=== PATIENT | female | born 1965 | race Caucasian/White ===

== ENCOUNTER 2023-01-29 10:46 | Observation (INO) ==
[2023-01-29] MEDS ORDERED: ONDANSETRON INJ 2 MG/ML 2 ML VIAL IV STA (11:10)
[2023-01-29] MEDS ORDERED: MECLIZINE HCL 25 MG TAB PO STA (11:15)
[2023-01-29] MEDS ORDERED: SODIUM CHLORIDE 0.9% 1000ML 1,000 ML IV SCH (11:15)
--- NOTE | 2023-01-29 11:20 | Emergency Department Note ---
History of Present Illness General Chief complaint: Vertigo Stated complaint: VERTIGO SX Time Seen by Provider: 01/29/23 10:59 Source: patient, EMS, RN notes reviewed and old records reviewed (EMS note reviewed) Mode of arrival: ambulatory Limitations: no limitations History of Present Illness This patient is a 57-year-old female who comes in after feeling dizzy at 8:00 in the morning. She said she was feeling well recently has had no recent illness fever or congestion. She says she sat up and felt like it was spinning. She had vertigo once before but it went away when she went back to sleep. She still has symptoms of feeling nauseated when she is resting but is worse if she moves her eyes or head. No trauma or injury no headache neck pain or stiffness no chest pain or shortness of breath or palpitations no focal numbness or weakness in the arms or legs or face. No difficulty speaking or swallowing. No change in vision. She did come in by EMS. Home Medications Medication Instructions Recorded Confirmed Type calcium carbonate 600 mg calcium 600 mg PO DAILY 05/03/19 01/29/23 History (1,500 mg) tablet (Calcium) ferrous sulfate 325 mg (65 mg 325 mg PO DAILY 05/03/19 01/29/23 History iron) tablet norgestimate-ethinyl estradiol 0 tab PO DAILY 05/03/19 01/29/23 History 0.18 mg/0.215mg/0.25mg-35 mcg(28)tablet (Tri-Sprintec (28)) ascorbic acid (vitamin C) 500 mg 500 mg PO DAILY 01/29/23 01/29/23 History tablet (Vitamin C) bupropion HCl 150 mg 24 hr tablet, 150 mg PO DAILY 01/29/23 01/29/23 History extended release cholecalciferol (vitamin D3) 25 0 mcg PO DAILY 01/29/23 01/29/23 History mcg (1,000 unit) tablet (Vitamin D3) levothyroxine 50 mcg tablet 50 mcg PO DAILY 01/29/23 01/29/23 History zinc 15 mg tablet 0 mg PO DAILY 01/29/23 01/29/23 History Allergies Allergy/AdvReac Type Severity Reaction Status Date / Time No Known Allergies Unverified 05/03/19 07:35 Past Med/Surg History Social History Smoking Status: Never smoker Preferred Language: Telugu Feels Safe at Home: Yes Immunizations: Past medical historythyroid disease. Denies history of strokes, diabetes, hypertension, cardiac disease she is on no blood thinners. She does have a history of palpitations in the past Allergiesno known drug allergies Social [place] . Does not smoke or drink or use drugs. Her primary doctor is Mark Gotti. 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 Review of Systems A total of 10 systems reviewed and were otherwise negative Physical Exam Vital Signs Vital Signs - 24 hr 01/29/23 10:48 01/29/23 11:12 01/29/23 11:03 Temperature 36.5 C Temperature Source Oral Pulse Rate 69 Pulse Rate from SpO2 Sensor Respiratory Rate 19 Respiratory Effort / Characteristics Non-Labored Spontaneous Respiratory Depth Normal Respiratory Pattern Regular Blood Pressure 166/101 H 157/113 H Blood Pressure Mean 122 136 Pulse Oximetry 100 Oxygen Delivery Method Room Air Room Air Sepsis Recent Fever Within 48 Hours No Sepsis New/Unexplained Change in Mental Status No Sepsis Action Taken by Nursing No Action Required 01/29/23 11:04 01/29/23 11:30 01/29/23 11:30 Temperature Temperature Source Pulse Rate 82 70 Pulse Rate from SpO2 Sensor 79 70 Respiratory Rate 15 14 Respiratory Effort / Characteristics Respiratory Depth Respiratory Pattern Blood Pressure 148/94 H Blood Pressure Mean 106 Pulse Oximetry 100 100 Oxygen Delivery Method Sepsis Recent Fever Within 48 Hours Sepsis New/Unexplained Change in Mental Status Sepsis Action Taken by Nursing 01/29/23 12:06 01/29/23 12:00 01/29/23 12:00 Temperature Temperature Source Pulse Rate 77 76 Pulse Rate from SpO2 Sensor 76 Respiratory Rate 10 L Respiratory Effort / Characteristics Respiratory Depth Respiratory Pattern Blood Pressure 149/95 H Blood Pressure Mean 124 Pulse Oximetry 100 Oxygen Delivery Method Sepsis Recent Fever Within 48 Hours Sepsis New/Unexplained Change in Mental Status Sepsis Action Taken by Nursing 01/29/23 12:38 01/29/23 12:38 01/29/23 13:00 Temperature Temperature Source Pulse Rate 77 Pulse Rate from SpO2 Sensor Respiratory Rate 11 L Respiratory Effort / Characteristics Respiratory Depth Respiratory Pattern Blood Pressure 139/87 138/88 Blood Pressure Mean 97 100 Pulse Oximetry Oxygen Delivery Method Sepsis Recent Fever Within 48 Hours Sepsis New/Unexplained Change in Mental Status Sepsis Action Taken by Nursing 01/29/23 13:00 01/29/23 14:55 01/29/23 14:56 Temperature Temperature Source Pulse Rate 78 83 Pulse Rate from SpO2 Sensor 78 82 84 Respiratory Rate 16 19 Respiratory Effort / Characteristics Respiratory Depth Respiratory Pattern Blood Pressure Blood Pressure Mean Pulse Oximetry 99 99 99 Oxygen Delivery Method Sepsis Recent Fever Within 48 Hours Sepsis New/Unexplained Change in Mental Status Sepsis Action Taken by Nursing 01/29/23 14:56 01/29/23 15:00 01/29/23 15:00 Temperature Temperature Source Pulse Rate 71 Pulse Rate from SpO2 Sensor 71 Respiratory Rate 14 Respiratory Effort / Characteristics Respiratory Depth Respiratory Pattern Blood Pressure 142/87 H 135/88 Blood Pressure Mean 112 101 Pulse Oximetry 94 Oxygen Delivery Method Sepsis Recent Fever Within 48 Hours Sepsis New/Unexplained Change in Mental Status Sepsis Action Taken by Nursing General: Well developed well nourished moderately ill-appearing middle-age female who has a towel over her face complaining she feels nauseated and dizzy but in no acute respiratory distress, breathing comfortably on room air. Normal speech HEENT: Normal cephalic atraumatic. Pupils are equal round and reactive to ligh t. Extraocular movements are intact. Oropharynx is pink with moist mucous membranes. No swelling of the mouth lips or tongue. Neck: Supple with a midline trachea. No meningeal signs or stiffness, no JVD or bruits. No Stridor. Chest: Clear to auscultation bilaterally. No wheezes or rhonchi. No increased work of breathing. Heart: Regular rate and rhythm without murmurs or gallops. Abdomen: Soft nontender, nondistended without rebound guarding or rigidity. Extremities: No cyanosis clubbing or edema. No calf tenderness or assymetry Spine/Back. Non tender to palpation. No CVA tenderness Skin: Good turgor without rashes. Neurologic exam: Cranial nerves two through 12 are intact. Motor and sensation are intact and symmetrical throughout. Course Administered Medications Discontinued Medications Gadobutrol (Gadobutrol 30ml Vial) 10.5 ml IV ONCE ONE Stop: 01/29/23 14:23 Last Admin: 01/29/23 14:23 Dose: 10.5 ml Documented By: SALLY Sodium Chloride (Nss 1000ml) 1,000 mls @ 999 mls/hr IV .Q1H1M ALYSIA Stop: 01/29/23 12:15 Last Infusion: 01/29/23 13:11 Dose: 0 mls/hr Documented By: Admin: 01/29/23 11:33 Dose: 999 mls/hr Documented By: ROMANA Ioversol (Optiray 320 500ml) 110 ml IV ONCE ONE Stop: 01/29/23 12:29 Last Admin: 01/29/23 12:28 Dose: 110 ml Documented By: BATSHEVA Lorazepam (Lorazepam 2 Mg/1 Ml Vial) 1 mg IV NOW STA Stop: 01/29/23 12:06 Last Admin: 01/29/23 12:11 Dose: 1 mg Documented By: KHADRA Meclizine HCl (Meclizine Hcl 25 Mg Tab) 25 mg PO NOW STA Stop: 01/29/23 11:16 Last Admin: 01/29/23 11:34 Dose: 25 mg Documented By: ROMANA Ondansetron HCl (Ondansetron Inj 2 Mg/Ml 2 Ml Vial) 4 mg IV NOW STA Stop: 01/29/23 11:11 Last Admin: 01/29/23 11:34 Dose: 4 mg Documented By: ROMANA Medical Decision Making Differential Diagnosis Vertigo, intracranial process, CVA, electrolyte or metabolic abnormality, arrhythmia, infection, anemia Medical Records Attestation: I reviewed the patient's medical records. Home Medications Current Medication List: was personally reviewed by me Laboratory Data Attestation: I reviewed the patient's lab results. 01/29/23 11:00 01/29/23 11:00 Lab Results 01/29/23 01/29/23 01/29/23 Range/Units 11:00 11:00 11:00 WBC 6.97 (4.8-10.8) K/ul RBC 4.43 (4.20-5.40) M/uL Hgb 13.0 (12.0-16.0) g/dl POC Hgb (12.0-16.0) g/dl Hct 37.4 (37.0-47.0) % POC Hct (37-47) % MCV 84.4 (80.0-100.0) fL MCH 29.3 (25.0-34.0) pg MCHC 34.8 (32.0-36.0) g/dL RDW Std Deviation 40.5 (36.4-46.3) fL RDW Coeff of Josselin 13.1 (11.5-14.5) % Plt Count 195 (130-400) K/uL MPV 10.6 (9.4-12.4) fL Immature Gran % (Auto) 0.4 % Neut % (Auto) 74.9 % Lymph % (Auto) 19.7 % [place] % (Auto) 4.0 % Eos % (Auto) 0.6 % Baso % (Auto) 0.4 % Neut # (Auto) 5.22 (1.40-6.50) K/uL Lymph # (Auto) 1.37 (1.2-3.4) K/uL [place] # (Auto) 0.28 (0.11-0.59) K/uL Eos # (Auto) 0.04 (0-0.50) K/uL Baso # (Auto) 0.03 (0-0.2) K/uL Immature Gran # (Auto) 0.03 (0.01-0.20) K/uL POC Sodium (135-144) mmol/L Sodium 136 (136-145) mmol/L POC Potassium (3.3-5.0) mmol/L Potassium 3.9 (3.5-5.1) mmol/L POC Chloride (101-112) mmol/L Chloride 105 (98-107) mmol/L Carbon Dioxide 24 (21-32) mmol/L POC Total CO2 (24-31) mmol/L Anion Gap 7 (3-11) POC Anion Gap (16-25) mmol/L POC BUN (7-18) mg/dl BUN 27 H (6-23) mg/dl Creatinine 0.79 (0.6-1.2) mg/dl POC Creatinine (0.6-1.3) mg/dl Est Cr Clr Drug Dosing 99.8 ml/min Est GFR ( Amer) 97.7 ml/min Est GFR (Non-Af Amer) 84.3 ml/min BUN/Creatinine Ratio 34.2 H (10-20) Glucose 139 H (70-99(Fasting)) mg/dl POC Glucose (other) (70-99) mg/dl Calcium 9.3 (8.6-10.3) mg/dl POC Ioniz Calcium Efraín (1.12-1.32) mmol/l Magnesium 1.7 (1.7-2.4) mg/dl Total Bilirubin 0.5 (0.2-1.0) mg/dl AST 17 (13-39) U/L ALT 20 (7-52) U/L Alkaline Phosphatase 80 (34-104) U/L Troponin I High Sens < 2.3 (0-14) pg/ml Total Protein 7.3 (6.0-8.3) gm/dl Albumin 4.2 (3.4-5.0) gm/dl Globulin 3.1 (2.5-4.0) gm/dl Albumin/Globulin Ratio 1.4 (0.9-2) Lipase 16 (11-82) U/L TSH 4.337 (0.300-4.500) uIu/ml SARS-CoV-2, RNA, NAAT (NEGATIVE) 01/29/23 01/29/23 Range/Units 11:32 11:40 WBC (4.8-10.8) K/ul RBC (4.20-5.40) M/uL Hgb (12.0-16.0) g/dl POC Hgb 11.9 L (12.0-16.0) g/dl Hct (37.0-47.0) % POC Hct 35 L (37-47) % MCV (80.0-100.0) fL MCH (25.0-34.0) pg MCHC (32.0-36.0) g/dL RDW Std Deviation (36.4-46.3) fL RDW Coeff of Josselin (11.5-14.5) % Plt Count (130-400) K/uL MPV (9.4-12.4) fL Immature Gran % (Auto) % Neut % (Auto) % Lymph % (Auto) % [place] % (Auto) % Eos % (Auto) % Baso % (Auto) % Neut # (Auto) (1.40-6.50) K/uL Lymph # (Auto) (1.2-3.4) K/uL [place] # (Auto) (0.11-0.59) K/uL Eos # (Auto) (0-0.50) K/uL Baso # (Auto) (0-0.2) K/uL Immature Gran # (Auto) (0.01-0.20) K/uL POC Sodium 141 (135-144) mmol/L Sodium (136-145) mmol/L POC Potassium 3.3 (3.3-5.0) mmol/L Potassium (3.5-5.1) mmol/L POC Chloride 108 (101-112) mmol/L Chloride (98-107) mmol/L Carbon Dioxide (21-32) mmol/L POC Total CO2 19 L (24-31) mmol/L Anion Gap (3-11) POC Anion Gap 19.0 (16-25) mmol/L POC BUN 21 H (7-18) mg/dl BUN (6-23) mg/dl Creatinine (0.6-1.2) mg/dl POC Creatinine 0.6 (0.6-1.3) mg/dl Est Cr Clr Drug Dosing ml/min Est GFR ( Amer) ml/min Est GFR (Non-Af Amer) ml/min BUN/Creatinine Ratio (10-20) Glucose (70-99(Fasting)) mg/dl POC Glucose (other) 120 H (70-99) mg/dl Calcium (8.6-10.3) mg/dl POC Ioniz Calcium Efraín 1.10 L (1.12-1.32) mmol/l Magnesium (1.7-2.4) mg/dl Total Bilirubin (0.2-1.0) mg/dl AST (13-39) U/L ALT (7-52) U/L Alkaline Phosphatase (34-104) U/L Troponin I High Sens (0-14) pg/ml Total Protein (6.0-8.3) gm/dl Albumin (3.4-5.0) gm/dl Globulin (2.5-4.0) gm/dl Albumin/Globulin Ratio (0.9-2) Lipase (11-82) U/L TSH (0.300-4.500) uIu/ml SARS-CoV-2, RNA, NAAT NEGATIVE (NEGATIVE) Imaging Data Attestation: I personally reviewed and interpreted this imaging study as follows: My Impression: CT head Radiologist's Impression: Head CT 01/29/23 11:[address] DOSE: HISTORY: vertigo TECHNIQUE: Multiaxial CT images of the head were performed without the use of intravenous contrast. Automated exposure control was utilized for this study. A dose lowering technique was utilized adhering to the principles of ALARA. Comparison: None. Findings: The paranasal sinuses and mastoid air cells are clear. The calvarium and skull base are intact. The ventricles and sulci are within normal limits. There is no mass, hematoma, midline shift, or acute infarct. Impression: No acute intracranial abnormality. ACT 112: Negative or not required by law. Electronically signed by: Ector Webb M.D. 01/29/2023 12:46 PM Chest X-Ray 01/29/23 11:12 XR chest 1V portable HISTORY: weakness COMPARISON: None. FINDINGS: The lungs are clear. Cardiac silhouette is normal in size. No pleural effusions. No pneumothorax. IMPRESSION: No acute process. ACT 112: Negative or not required by law. Electronically signed by: Ector Webb M.D. 01/29/2023 11:35 AM Head CTA 01/29/23 11:13 HEAD & NECK CTA HISTORY: vertigo TECHNIQUE: Multiaxial CT images of the head were performed following the intravenous administration of contrast to evaluate the major cerebral vessels. Multiaxial CT images of the neck were also performed following the intravenous administration of contrast to evaluate the major cervical vessels. Maximum intensity projection images were also obtained. A dose lowering technique was utilized adhering to the principles of ALARA. COMPARISON: None. FINDINGS: There is no mass, hematoma, midline shift, or acute infarct. Visualized intracranial internal carotid arteries, distal vertebral arteries, and basilar artery are widely patent. There is no significant stenosis, occlusion, or aneury sm seen within the bilateral ACAs, MCAs, or casing tier. The major dural venous sinuses are patent. The aortic arch and proximal great vessels are widely patent. There is no significant stenosis, occlusion, or dissection identified within the bilateral common carotid, internal carotid, or vertebral arteries. IMPRESSION: 1. No significant stenosis, occlusion, or aneurysm within the [place]. 2. No significant stenosis, occlusion, or dissection identified within the carotid or vertebral arteries. ACT 112: Negative or not required by law. Electronically signed by: Ector Webb M.D. 01/29/2023 12:52 PM Neck CTA 01/29/23 11:13 HEAD & NECK CTA HISTORY: vertigo TECHNIQUE: Multiaxial CT images of the head were performed following the intravenous administration of contrast to evaluate the major cerebral vessels. Multiaxial CT images of the neck were also performed following the intravenous administration of contrast to evaluate the major cervical vessels. Maximum intensity projection images were also obtained. A dose lowering technique was utilized adhering to the principles of ALARA. COMPARISON: None. FINDINGS: There is no mass, hematoma, midline shift, or acute infarct. Visualized intracranial internal carotid arteries, distal vertebral arteries, and basilar artery are widely patent. There is no significant stenosis, occlusion, or aneurysm seen within the bilateral ACAs, MCAs, or casing tier. The major dural venous sinuses are patent. The aortic arch and proximal great vessels are widely patent. There is no significant stenosis, occlusion, or dissection identified within the bilateral common carotid, internal carotid, or vertebral arteries. IMPRESSION: 1. No significant stenosis, occlusion, or aneurysm within the [place]. 2. No significant stenosis, occlusion, or dissection identified within the carotid or vertebral arteries. ACT 112: Negative or not required by law. Electronically signed by: Ector Webb M.D. 01/29/2023 12:52 PM Brain MRI 01/29/23 13:01 Brain MRI WITH AND WITHOUT CONTRAST HISTORY: vertigo TECHNIQUE: Multiplanar multisequence MRI of the brain was performed both before and after the intravenous administration of contrast. COMPARISON STUDY: Head CT 01/29/2023. FINDINGS: There are no areas of restricted diffusion to suggest acute infarction. The midline structures are intact. The paranasal sinuses are clear. The mastoid air cells are clear. The ventricles and sulci are within normal limits for age. There is no mass, hematoma, midline shift. The major vascular flow-voids at the skull base are well maintained. Postcontrast sequences show no areas of abnormal enhancement. IMPRESSION: No acute intracranial abnormality. ACT 112: Negative or not required by law. Electronically signed by: Ector Webb M.D. 01/29/2023 2:48 PM ECG Data Attestation: I personally reviewed and interpreted this ECG as follows: Indication: + other (dizziness) MDM Narrative This patient comes in with vertigo type symptoms. She looks uncomfortable on exam her symptoms are worse with movement she has otherwise normal neurologic exam. I think most like this is peripheral but it is difficult to rule out central vertigo. I did order CAT scan of the head with CT angiography of the head and neck. She otherwise has no neurologic deficits besides being dizzy. IV access was access was established and she was hydrated with a 1 L IV normal saline bolus she was given Zofran 4 mg IV for nausea and was given meclizine 25 mg p.o. Multiple blood testing was obtained EKG was obtained she was reassessed frequently. She was not feeling much difference and so I gave her Ativan 1 mg IV. Her neurologic work-up with head CT and angiography of the head and neck was negative. EKG does not suggest acute coronary syndrome or arrhythmia. She is no significant acrylate or metabolic abnormalities. Upon reassessment she looks quite a bit better but still has a lot of dizziness. Is primarily with moving at this point. I did order an MRI after discussing the pros and cons. And told the patient we would reevaluate her after the MRI as well. The MRI fortunately looks normal however the patient still has a lot of symptoms when getting up she looks better and feels a lot better at rest but it has a difficult time getting up without assistance and going to the bathroom. I am concerned she is not able to go home and needs some observation in the hospital. The patient and her family agree. I did consult the [facility] hospitalist and discussed the case with them and they will see her in the ER for further treatment and evaluation and/admission/observation Continuous cardiac monitoring: Orders placed in EMR for continuous cardiac monitoring: Upon my evaluation she was noted to be normal sinus rhythm with a rate of 70 Impression & Plan Vertigo, Dizziness, Ambulatory dysfunction, Nausea, Lab test negative for COVID-19 virus Discharge Plan Visit Data Chief Complaint: Vertigo Stated Complaint: VERTIGO SX ED Provider: Logan Renteria Discharge Problem: Vertigo, Dizziness, Ambulatory dysfunction, Nausea, Lab test negative for COVID-19 virus Patient Disposition: Admitted As Inpatient Discharge Instructions Interventions: ED Discharge Assessment Last Done: 01/29/23 16:14
[2023-01-29 11:30] LABS: Basophils # (auto) 0.03 K/uL (0-0.2); Basophils % (auto) 0.4 %; Eosinophils # (auto) 0.04 K/uL (0-0.50); Eosinophils % (auto) 0.6 %; Hematocrit (blood only) 37.4 % (37.0-47.0); Immature Granulocytes # (auto) 0.03 K/uL (0.01-0.20); Immature Granulocytes % (auto) 0.4 %; Lymphocytes # (auto) 1.37 K/uL (1.2-3.4); Lymphocytes % (auto) 19.7 %; Mean Corpuscular Hemoglobin 29.3 pg (25.0-34.0); Mean Corpuscular Hgb Conc 34.8 g/dL (32.0-36.0); Mean Corpuscular Volume 84.4 fL (80.0-100.0); Mean Platelet Volume 10.6 fL (9.4-12.4); Monocytes # (auto) 0.28 K/uL (0.11-0.59); Neutrophils # (auto) 5.22 K/uL (1.40-6.50); Neutrophils % (auto) 74.9 %; Platelet Count 195 K/uL (130-400); RDW Coefficient of Variation 13.1 % (11.5-14.5); RDW Standard Deviation 40.5 fL (36.4-46.3); Red Blood Count 4.43 M/uL (4.20-5.40); White Blood Count 6.97 K/ul (4.8-10.8)
[2023-01-29 11:34] LABS: Alanine Aminotransferase 20 U/L (7-52); Albumin Globulin Ratio 1.4 (0.9-2); Albumin Level 4.2 gm/dl (3.4-5.0); Alkaline Phosphatase 80 U/L (34-104); Anion Gap 7 (3-11); Aspartate Aminotransferase 17 U/L (13-39); BUN Creatinine Ratio 34.2 (10-20); Bilirubin,Total 0.5 mg/dl (0.2-1.0); Blood Urea Nitrogen 27 mg/dl (6-23); Calcium 9.3 mg/dl (8.6-10.3); Carbon Dioxide 24 mmol/L (21-32); Chloride 105 mmol/L (98-107); Creatinine Clr Calc Pharmacy 99.8 ml/min; Est GFR (African American) 97.7 ml/min; Est GFR (Non-African American) 84.3 ml/min; Globulin 3.1 gm/dl (2.5-4.0); Glucose 139 mg/dl (70-99(Fasting)); Lipase 16 U/L (11-82); Magnesium 1.7 mg/dl (1.7-2.4); Potassium 3.9 mmol/L (3.5-5.1); Sodium 136 mmol/L (136-145); Total Protein 7.3 gm/dl (6.0-8.3)
--- NOTE | 2023-01-29 11:36 | XRay Report ---
XR chest 1V portable HISTORY: weakness COMPARISON: None. FINDINGS: The lungs are clear. Cardiac silhouette is normal in size. No pleural effusions. No pneumot horax. IMPRESSION: No acute process. ACT 112: Negative or not required by law. Electronically signed by: Ector Webb M.D. 01/29/2023 11:35 AM
[2023-01-29 11:39] LABS: Troponin I High Sensitivity < 2.3 pg/ml (0-14)
[2023-01-29 11:54] LABS: iSTAT Creatinine 0.6 mg/dl (0.6-1.3); iSTAT Hemoglobin 11.9 g/dl (12.0-16.0); iSTAT Ionized Calcium 1.1 mmol/l (1.12-1.32); iSTAT Potassium 3.3 mmol/L (3.3-5.0)
[2023-01-29] MEDS ORDERED: LORazepam 2 MG/1 ML VIAL IV STA (12:05)
[2023-01-29] MEDS ORDERED: OPTIRAY 320 500ml IV ONE (12:28)
--- NOTE | 2023-01-29 12:48 | CT Scan Report ---
HEAD CT NONCONTRAST CT DOSE: HISTORY: vertigo TECHNIQUE: Multiaxial CT images of the head were performed without the use of intravenous contrast. A utomated exposure control was utilized for this study. A dose lowering technique was utilized adheri ng to the principles of ALARA. Comparison: None. Findings: The paranasal sinuses and mastoid air cells are clear. The calvarium and skull base are int act. The ventricles and sulci are within normal limits. There is no mass, hematoma, midline shift, or acute infarct. Impression: No acute intracranial abnormality. ACT 112: Negative or not required by law. Electronically signed by: Ector Webb M.D. 01/29/2023 12:46 PM
--- NOTE | 2023-01-29 12:54 | CT Scan Report ---
HEAD & NECK CTA HISTORY: vertigo TECHNIQUE: Multiaxial CT images of the head were performed following the intravenous administration o f contrast to evaluate the major cerebral vessels. Multiaxial CT images of the neck were also perform ed following the intravenous administration of contrast to evaluate the major cervical vessels. Maxim um intensity projection images were also obtained. A dose lowering technique was utilized adhering to the principles of ALARA. COMPARISON: None. FINDINGS: There is no mass, hematoma, midline shift, or acute infarct. Visualized intracranial internal carotid arteries, distal vertebral arteries, and basilar artery are widely patent. 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 The major dural venous sinuses are patent. The aortic arch and proximal great vessels are widely patent. There is no significant stenosis, occ lusion, or dissection identified within the bilateral common carotid, internal carotid, or vertebral arteries. IMPRESSION: 1. No significant stenosis, occlusion, or aneurysm within the [place]. 2. No significant stenosis, occlusion, or dissection identified within the carotid or vertebral arter ies. ACT 112: Negative or not required by law. Electronically signed by: Ector Webb M.D. 01/29/2023 12:52 PM
--- NOTE | 2023-01-29 12:54 | CT Scan Report ---
HEAD & NECK CTA HISTORY: vertigo TECHNIQUE: Multiaxial CT images of the head were performed following the intravenous administration o f contrast to evaluate the major cerebral vessels. Multiaxial CT images of the neck were also perform ed following the intravenous administration of contrast to evaluate the major cervical vessels. Maxim um intensity projection images were also obtained. A dose lowering technique was utilized adhering to the principles of ALARA. COMPARISON: None. FINDINGS: There is no mass, hematoma, midline shift, or acute infarct. Visualized intracranial internal carotid arteries, distal vertebral arteries, and basilar artery are widely patent. 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 The major dural venous sinuses are patent. The aortic arch and proximal great vessels are widely patent. There is no significant stenosis, occ lusion, or dissection identified within the bilateral common carotid, internal carotid, or vertebral arteries. IMPRESSION: 1. No significant stenosis, occlusion, or aneurysm within the [place]. 2. No significant stenosis, occlusion, or dissection identified within the carotid or vertebral arter ies. ACT 112: Negative or not required by law. Electronically signed by: Ector Webb M.D. 01/29/2023 12:52 PM
[2023-01-29] MEDS ORDERED: GADOBUTROL 30ML VIAL IV ONE (14:22)
--- NOTE | 2023-01-29 14:51 | Magnetic Resonance Report ---
Brain MRI WITH AND WITHOUT CONTRAST HISTORY: vertigo TECHNIQUE: Multiplanar multisequence MRI of the brain was performed both before and after the intrave nous administration of contrast. COMPARISON STUDY: Head CT 01/29/2023. FINDINGS: There are no areas of restricted diffusion to suggest acute infarction. The midline structu res are intact. The paranasal sinuses are clear. The mastoid air cells are clear. The ventricles and sulci are within normal limits for age. There is no mass, hematoma, midline shift. The major vascular flow-voids at the skull base are well maintained. Postcontrast sequences show no areas of abnormal e nhancement. IMPRESSION: No acute intracranial abnormality. ACT 112: Negative or not required by law. Electronically signed by: Ector Webb M.D. 01/29/2023 2:48 PM
--- NOTE | 2023-01-29 15:29 | History & Physical Report ---
Date of Service January 29, 2023 Assessment & Plan (1) BPPV (benign paroxysmal positional vertigo): (2) Dizziness: (3) Hypothyroidism: (4) Obesity: (5) Depression: Plan 57 year old presents with dizziness and nausea that started this morning. She has had positional vertigo in the past. Considering BPPV; no photosensitivity. Prednisone taper with Meclizine PRN. Head and neck CTA, along with brain MRI negative. Additional PMH includes hypothyroidism, depression and obesity. BPPV: Dizziness: Head and Neck CTA: negative for any stenosis, occlusions or dissections. Brain MRI negative for intracranial abnormalities. No leukocytosis, Troponin negative nystagmus noted TSH 4.37 1L NSB in ED Meclizine and Ativan in ED; continue Meclizine PRN Prednisone taper ordered Consider Audiology or ENT as outpatient for further testing Hypothyroidism: Takes Levothyroixine; continue TSH 4.37 Fe+ Deficiency Anemia: Hgb 13.0 Takes Ferrous Sulfate; continue Depression: Takes Bupropion; continue Disposition: PCP: Mark Ramachandran Code Status: Full Code VTE Prophylaxis: Teds and SCDs for now I spent a total of 87 minutes coordinating, documenting, and providing care for this patient excluding time spent in the performance of separately billed services. All of the aforementioned completed while collaborating with the assigned attending physician for a full treatment plan. Please see their addendum for further details. History of Present Illness Chief Complaint: dizziness Primary Care Provider: NO PCP Ms. Asif is a 57 year old female that presented to the [facility] Ed today with dizziness and a spinning sensation. She denies any recent illness. She was given Meclizine in the ED with some relief. NO real triggers noted. She does express sensitivity to movement generally, but no photosensitivity. 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 Head and Neck CTA: negative for any stenosis, occlusions or disections. Brain MRI negative for intracranial abnormalities. She received 1L NSB in the ER along with meclizine and Ativan. Patient symptoms have improved but she still is feeling like she cannot walk without assistance. PMH includes hypothyroidism, OA, and Fe+ Deficiency Anemia. No leukocytosis, anemia, or other laboratory abnormalities. TSH normal. Troponin negative. Hemodynamically stable and not requiring any supplemental O2. She follows with a PCP with Mark Ramachandran. Patient denies headache, visual changes including blurry or double vision, speech changes, nausea, vomiting, diarrhea, chest pain, palpitations, recent falls or trauma, auditory changes. Patient will be admitted for further evaluation and management. Please see A/P for further details. Allergies Allergy/AdvReac Type Severity Reaction Status Date / Time No Known Allergies Unverified 05/03/19 07:35 Home Medications Medication Instructions Recorded Confirmed Type calcium carbonate 600 mg calcium 600 mg PO DAILY 05/03/19 01/29/23 History (1,500 mg) tablet (Calcium) ferrous sulfate 325 mg (65 mg 325 mg PO DAILY 05/03/19 01/29/23 History iron) tablet norgestimate-ethinyl estradiol 0 tab PO DAILY 05/03/19 01/29/23 History 0.18 mg/0.215mg/0.25mg-35 mcg(28)tablet (Tri-Sprintec (28)) ascorbic acid (vitamin C) 500 mg 500 mg PO DAILY 01/29/23 01/29/23 History tablet (Vitamin C) bupropion HCl 150 mg 24 hr tablet, 150 mg PO DAILY 01/29/23 01/29/23 History extended release cholecalciferol (vitamin D3) 25 0 mcg PO DAILY 01/29/23 01/29/23 History mcg (1,000 unit) tablet (Vitamin D3) levothyroxine 50 mcg tablet 50 mcg PO DAILY 01/29/23 01/29/23 History zinc 15 mg tablet 0 mg PO DAILY 01/29/23 01/29/23 History Past Med/Surg History Medical History (Updated 01/29/23 @ 20:05 by ROBLES Lozano) BPPV (benign paroxysmal positional vertigo) Depression Dizziness Hypothyroidism Iron deficiency anemia Obesity Osteoarthritis of back Vertigo Surgical History (Updated 01/29/23 @ 20:01 by ROBLES Lozano) No pertinent past surgical history Family History (Updated 01/29/23 @ 20:01 by ROBLES Lozano) Other Dyslipidemia Heart disease Hypertension Social History Smoking Status: Former smoker Second Hand Exposure: No; Do You Dip or Chew Tobacco: No; Tobacco Cessation Education Requested by Patient: No Hx Alcohol Use: No Hx Substance Use: No Preferred Language: Comoran Communication Ability: Effective Briar Wood Sorter Required: No Beliefs That Will Affect Care: None Current Living Situation: Spouse Other Information That Helps Us Care for You: No Feels Safe at Home: Yes Safety Concerns: Feels Safe At This Time Review of Systems Review of Systems: Neuro: (-) Falls, trauma, slurred speech HEENT: (-) NASH,(+) dizziness, dysphagia, visual or auditory changes (+) nausea. CV: (-) CP, palpitations, swelling Resp: (-) SOB GI: (-) appetite changes, N/V/D, bowel changes : (-) urinary changes Skin: (-) rashes Psych: (-) anxiety, depression Physical Exam Physical Exam: Neuro: AAOx4, PERRLA, no aphagia, memory changes, CNII-XII grossly intact (+) nystagmus HEENT: head normocephalic, moist mucus membranes CV: S1/S2, (-) M/G/R, (-) edema, cap refill < 3 seconds Resp: Lungs CTA in all gonsales. On RA GI: Abdomen S/NT/ND, Ax4 bowel sounds, (-) CVA tenderness Musculoskeletal: 5/5 B/L UE strength, 5/5 B/L LE strength. No gait disturbance Skin: (-) rashes , (-) erythema. Psych: euthymic mood Results & Data Results & Data Vital Signs (Past 12 Hours) Vital Signs Temp Pulse Resp BP Pulse Ox O2 Del Method 01/29/23 12:06 77 01/29/23 11:30 70 14 100 01/29/23 11:30 148/94 H 01/29/23 11:04 82 15 100 01/29/23 11:03 157/113 H 01/29/23 11:12 Room Air 01/29/23 10:48 36.5 C 69 19 166/101 H 100 Room Air Laboratory Results Short CBC 01/29/23 Range/Units 11:00 WBC 6.97 (4.8-10.8) K/ul Hgb 13.0 (12.0-16.0) g/dl Hct 37.4 (37.0-47.0) % Plt Count 195 (130-400) K/uL BMP 01/29/23 11:00 Sodium 136 Potassium 3.9 Chloride 105 Carbon Dioxide 24 BUN 27 H Creatinine 0.79 Glucose 139 H Calcium 9.3 Liver Function 01/29/23 Range/Units 11:00 Total Bilirubin 0.5 (0.2-1.0) mg/dl AST 17 (13-39) U/L ALT 20 (7-52) U/L Alkaline Phosphatase 80 (34-104) U/L Albumin 4.2 (3.4-5.0) gm/dl Diagnostic Findings Head CT 01/29/23 11:[address] DOSE: HISTORY: vertigo TECHNIQUE: Multiaxial CT images of the head were performed without the use of intravenous contrast. Automated exposure control was utilized for this study. A dose lowering technique was utilized adhering to the principles of ALARA. Comparison: None. Findings: The paranasal sinuses and mastoid air cells are clear. The calvarium and skull base are intact. The ventricles and sulci are within normal limits. There is no mass, hematoma, midline shift, or acute infarct. Impression: No acute intracranial abnormality. ACT 112: Negative or not required by law. Electronically signed by: Ector Webb M.D. 01/29/2023 12:46 PM Chest X-Ray 01/29/23 11:12 XR chest 1V portable HISTORY: weakness COMPARISON: None. FINDINGS: The lungs are clear. Cardiac silhouette is normal in size. No pleural effusions. No pneumothorax. IMPRESSION: No acute process. ACT 112: Negative or not required by law. Electronically signed by: Ector Webb M.D. 01/29/2023 11:35 AM Head CTA 01/29/23 11:13 HEAD & NECK CTA HISTORY: vertigo TECHNIQUE: Multiaxial CT images of the head were performed following the intravenous administration of contrast to evaluate the major cerebral vessels. Multiaxial CT images of the neck were also performed following the intravenous administration of contrast to evaluate the major cervical vessels. Maximum intensity projection images were also obtained. A dose lowering technique was utilized adhering to the principles of ALARA. COMPARISON: None. FINDINGS: There is no mass, hematoma, midline shift, or acute infarct. Visualized intracranial internal carotid arteries, distal vertebral arteries, and basilar artery are widely patent. There is no significant stenosis, occlusion, or aneurysm seen within the bilateral ACAs, MCAs, or finance lecturer. The major dural venous sinuses are patent. The aortic arch and proximal great vessels are widely patent. There is no significant stenosis, occlusion, or dissection identified within the bilateral common carotid, internal carotid, or vertebral arteries. IMPRESSION: 1. No significant stenosis, occlusion, or aneurysm within the [place]. 2. No significant stenosis, occlusion, or dissection identified within the carotid or vertebral arteries. ACT 112: Negative or not required by law. Electronically signed by: Ector Webb M.D. 01/29/2023 12:52 PM Neck CTA 01/29/23 11:13 HEAD & NECK CTA HISTORY: vertigo TECHNIQUE: Multiaxial CT images of the head were performed following the intravenous administration of contrast to evaluate the major cerebral vessels. Multiaxial CT images of the neck were also performed following the intravenous administration of contrast to evaluate the major cervical vessels. Maximum intensity projection images were also obtained. A dose lowering technique was utilized adhering to the principles of ALARA. COMPARISON: None. FINDINGS: There is no mass, hematoma, midline shift, or acute infarct. Visualized intracranial internal carotid arteries, distal vertebral arteries, and basilar artery are widely patent. There is no significant stenosis, occlusion, or aneurysm seen within the bilateral ACAs, MCAs, or finance lecturer. The major dural venous sinuses are patent. The aortic arch and proximal great vessels are widely patent. There is no significant stenosis, occlusion, or dissection identified within the bilateral common carotid, internal carotid, or vertebral arteries. IMPRESSION: 1. No significant stenosis, occlusion, or aneurysm within the [place]. 2. No significant stenosis, occlusion, or dissection identified within the carotid or vertebral arteries. ACT 112: Negative or not required by law. Electronically signed by: Ector Webb M.D. 01/29/2023 12:52 PM Brain MRI 01/29/23 13:01 Brain MRI WITH AND WITHOUT CONTRAST HISTORY: vertigo TECHNIQUE: Multiplanar multisequence MRI of the brain was performed both before and after the intravenous administration of contrast. COMPARISON STUDY: Head CT 01/29/2023. FINDINGS: There are no areas of restricted diffusion to suggest acute infarction. The midline structures are intact. The paranasal sinuses are clear. The mastoid air cells are clear. The ventricles and sulci are within normal limits for age. There is no mass, hematoma, midline shift. The major vascular flow-voids at the skull base are well maintained. Postcontrast sequences show no areas of abnormal enhancement. IMPRESSION: No acute intracranial abnormality. ACT 112: Negative or not required by law. Electronically signed by: Ector Webb M.D. 01/29/2023 2:48 PM Code Status & VTE Plan Code Status Full Code in the event of cardiac or respiratory arrest VTE Prophylaxis Plan VTE Prophylaxis will be ordered: Yes Supervising Physician Co-Signing Physician Notes I have seen and examined the patient and have discussed the case with the provider above. I agree with the assessment and plan as stated. The patient is a 57-year-old female presenting with acute onset vertigo since waking up this morning. She denies any recent illnesses and feels the vertigo is triggered by position changes. She does have a frontal headache that is intermittent today. She denies any strokelike symptoms. In the ER she was given Zofran, fluids, meclizine, lorazepam 1 mg IV and was able to get some sleep. She reports currently feeling better although still affected with vertigo. On physical exam she is obese and appears lethargic and rundown. She is oriented. She is able to sit up slowly but this does precipitate vertigo ca using her to need to lay back down after a few minutes. HEENT exam revealed pupils PERRLA and extraocular motions intact. Horizontal nystagmus to the right was noted. CN II through XII grossly intact. Mucous membranes are moist. Oropharynx is clear. External auditory canals are blocked with cerumen bilaterally. No other gross focal neurologic deficits. Strength is 5 out of 5 throughout. Cardiopulmonary exam is unremarkable. She appears euvolemic on exam. Work-up includes a normal CBC and CHEM panel. TSH is normal, lipase is normal. SARS-CoV-2 is negative. Imaging including head and neck CTA include no significant stenosis, occlusion or aneurysm within the [place] or dissection identified within the carotid or vertebral arteries. A brain MRI revealed no acute intracranial abnormality. EKG revealed normal sinus rhythm with a rate of 80. 1. Vertigo, likely peripheral (BPPV) 2. Hypothyroidism 3. Morbid obesity 57 yo with likely BPPV, no clear trigger. She has motion sensitivity traditionally. No recent illnesses. Feels only slightly better with the meclizine. Will start a quick prednisone taper to see is this helps. Also wtih bilateral cerumen impaction so adding Debrox solution. Vikram, DO
[2023-01-29] MEDS ORDERED: MECLIZINE 12.5 MG TAB PO SCH (18:00)
[2023-01-29] MEDS: predniSONE 20 MG TAB PO SCH (18:45)
[2023-01-29] MEDS ORDERED: MECLIZINE 12.5 MG TAB PO PRN ×2 (19:27→19:28)
[2023-01-29] MEDS: CARBAMIDE PEROXIDE 6.5% 15 ML BTL OTB SCH (21:31)
[2023-01-30] MEDS ORDERED: LEVOTHYROXINE SODIUM 50 MCG TABLET PO SCH (06:30)
[2023-01-30] MEDS: CARBAMIDE PEROXIDE 6.5% 15 ML BTL OTB SCH (08:39)
[2023-01-30] MEDS: predniSONE 20 MG TAB PO SCH (08:39)
[2023-01-30] MEDS ORDERED: buPROPion XL 150 MG TABCR PO SCH (09:00)
[2023-01-30] MEDS ORDERED: FERROUS SULFATE 325 MG TAB PO SCH (09:00)
[2023-01-30 09:42] LABS: Appearance Urine Clear (Clear); Bilirubin Urine Negative (Negative); Blood Urine Negative (Negative); Color Urine Yellow; Glucose Urine UA Negative (Negative); Ketones Urine Negative (Negative); Leukocyte Esterase Urine Negative (Negative); Nitrite Urine Negative (Negative); Protein Urine Negative (Negative); Urobilinogen Urine Negative (Negative); pH Urine 5.5 (4.5-7.5)
--- NOTE | 2023-01-30 10:49 | Electrocardiogram Report ---
Test Reason : Blood Pressure : / mmHG Vent. Rate : 080 BPM Atrial Rate : 080 BPM P-R Int : 194 ms QRS Dur : 082 ms QT Int : 402 ms P-R-T Axes : 024 034 034 degrees QTc Int : 463 ms Normal sinus rhythm Normal ECG No previous ECGs available Confirmed by Otto Carrillo ([id number]) on 01/30/2023 10:49:19 AM Referred By: Confirmed By:Otto Carrillo
--- NOTE | 2023-01-30 10:56 | Neurology Consultation ---
Date of Consultation January 30, 2023 Assessment & Plan (1) BPPV (benign paroxysmal positional vertigo): Symptoms consistent with BPPV, MRI negative. No further neurologic workup recommended. PCP follow-up. Can try meclizine if symptoms recur at home. Telehealth Consultation Telehealth Information Telehealth Information: I performed this visit using a real-time telehealth connection between my location and the patients location ([facility]). After connecting through interactive tele-video, patient was identified by name and date of and/or wristband check.Patient (or authorized healthcare novelties sales representative) was informed that this was a telemedicine visit and it was being conducted confidentially over secure lines. My office door was closed and no one else was present in the room with me.Patient (or authorized healthcare novelties sales representative) provided consent to proceed with the visit, expressed an understanding of privacy and security of the telemedicine visit, and gave permission to have a hospital novelties sales representative in the room in order to assist with the visit and to conduct portions of the visit, as needed. I informed the patient (or authorized healthcare novelties sales representative) that I reviewed their record and presented the opportunity for them to ask any questions regarding the visit today. The patient agreed to participate. History of Present Illness Reason for Consultation: Vertigo Requesting Physician: Dr. De La Garza Attending Physician: Aníbal De La Garza MD History of Present Illness Marie Asif is a 57 yo F presenting with vertigo, now resolved. She reports she woke up yesterday morning with a spinning sensation. She experienced this similar feeling once prior while trying to watch a movie. She otherwise feels back to baseline currently. No associated weakness, numbness, vision changes or headache. Allergies Allergy/AdvReac Type Severity Reaction Status Date / Time No Known Allergies Unverified 05/03/19 07:35 Home Medications Medication Instructions Recorded Confirmed Type calcium carbonate 600 mg calcium 600 mg PO DAILY 05/03/19 01/29/23 History (1,500 mg) tablet (Calcium) ferrous sulfate 325 mg (65 mg 325 mg PO DAILY 05/03/19 01/29/23 History iron) tablet norgestimate-ethinyl estradiol 0 tab PO DAILY 05/03/19 01/29/23 History 0.18 mg/0.215mg/0.25mg-35 mcg(28)tablet (Tri-Sprintec (28)) ascorbic acid (vitamin C) 500 mg 500 mg PO DAILY 05/27/23 05/27/23 History tablet (Vitamin C) bupropion HCl 150 mg 24 hr tablet, 150 mg PO DAILY 01/29/23 01/29/23 History extended release cholecalciferol (vitamin D3) 25 0 mcg PO DAILY 01/29/23 01/29/23 History mcg (1,000 unit) tablet (Vitamin D3) levothyroxine 50 mcg tablet 50 mcg PO DAILY 01/29/23 01/29/23 History zinc 15 mg tablet 0 mg PO DAILY 01/29/23 01/29/23 History Patient History Medical History (Updated 01/29/23 @ 20:05 by ROBLES Lozano) BPPV (benign paroxysmal positional vertigo) Depression Dizziness Hypothyroidism Iron deficiency anemia Obesity Osteoarthritis of back Vertigo Surgical History (Updated 01/29/23 @ 20:01 by ROBLES Lozano) No pertinent past surgical history Family History (Updated 01/29/23 @ 20:01 by ROBLES Lozano) Other Dyslipidemia Heart disease Hypertension Social History Smoking Status: Former smoker Second Hand Exposure: No; Do You Dip or Chew Tobacco: No; Tobacco Cessation Education Requested by Patient: No Hx Alcohol Use: No Hx Substance Use: No Preferred Language: Irish Communication Ability: Effective House Mover Supervisor Required: No Beliefs That Will Affect Care: None Current Living Situation: Spouse Other Information That Helps Us Care for You: No Feels Safe at Home: Yes Safety Concerns: Feels Safe At This Time Review of Systems +vertigo Physical Exam Neurological Examination: Mental Status: Awake and alert. Oriented to person, place, and time. Fluent. Comprehension intact. Affect appropriate. Cranial Nerves: III/IV/: Versions intact without nystagmus, no gaze preference. V: Facial sensation symmetric to light touch VII: Facial expression symmetric VIII: Hearing intact to voice IX/X: Palate elevates symmetrically XI: Shoulder shrug symmetric XII: Tongue midline Motor: Strength was symmetric and antigravity throughout. P There were no abnormal movements. Reflexes: Unable to assess over telemedicine Results & Data Vital Signs (Past 12 Hours) Vital Signs Temp Pulse Pulse Resp BP Pulse Ox O2 Del Method 01/30/23 10:00 Room Air 01/30/23 07:29 36.5 C 65 18 142/85 H 98 Room Air 01/30/23 07:00 76 01/30/23 04:43 36.5 C 70 20 137/85 100 Room Air 01/30/23 00:17 79 01/30/23 00:11 37.0 C 78 20 114/71 94 Room Air Laboratory Results Abnormal lab results 01/29/23 01/29/23 Range/Units 11:00 11:40 POC Hgb 11.9 L (12.0-16.0) g/dl POC Hct 35 L (37-47) % POC Total CO2 19 L (24-31) mmol/L POC BUN 21 H (7-18) mg/dl BUN 27 H (6-23) mg/dl BUN/Creatinine Ratio 34.2 H (10-20) Glucose 139 H (70-99(Fasting)) mg/dl POC Glucose (other) 120 H (70-99) mg/dl POC Ioniz Calcium Efraín 1.10 L (1.12-1.32) mmol/l Diagnostic Findings MRI brain - unremarkable
--- NOTE | 2023-01-30 16:27 | Discharge Summary ---
Date of Service January 30, 2023 Admission HPI Per Admitting Provider Ms. Asif is a 57 year old female that presented to the [facility] Ed today with dizziness and a spinning sensation. She denies any recent illness. She was given Meclizine in the ED with some relief. NO real triggers noted. She does express sensitivity to movement generally, but no photosensitivity. 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 Head and Neck CTA: negative for any stenosis, occlusions or disections. Brain MRI negative for intracranial abnormalities. She received 1L NSB in the ER along with meclizine and Ativan. Patient symptoms have improved but she still is feeling like she cannot walk without assistance. PMH includes hypothyroidism, OA, and Fe+ Deficiency Anemia. No leukocytosis, anemia, or other laboratory abnormalities. TSH normal. Troponin negative. Hemodynamically stable and not requiring any supplemental O2. She follows with a PCP with Mark Ramachandran. Patient denies headache, visual changes including blurry or double vision, speech changes, nausea, vomiting, diarrhea, chest pain, palpitations, recent falls or trauma, auditory changes. Patient will be admitted for further evaluation and management. Please see A/P for further details. Admission Exam Per Admitting Provider Neuro: AAOx4, PERRLA, no aphagia, memory changes, CNII-XII grossly intact (+) nystagmus HEENT: head normocephalic, moist mucus membranes CV: S1/S2, (-) M/G/R, (-) edema, cap refill < 3 seconds Resp: Lungs CTA in all gonsalse. On RA GI: Abdomen S/NT/ND, Ax4 bowel sounds, (-) CVA tenderness Musculoskeletal: 5/5 B/L UE strength, 5/5 B/L LE strength. No gait disturbance Skin: (-) rashes , (-) erythema. Psych: euthymic mood Principal Diagnosis Benign paroxysmal positional vertigo Discharge Exam Constitutional: WD/WN, vitals as above, NAD, sitting up in bed, pleasant, conversing easily Respiratory: normal respiratory effort, lungs clear to auscultation, no wheeze, rales, rhonchi. Normal insp/exp effort, no accessory muscle use Cardiovascular: RRR, no murmur, no edema Vessels: no JVD or carotid bruit Chest: normal inspection of chest Abdomen: normal bowel sounds, soft, nontender, no hepatosplenomegaly Musculoskeletal: no cyanosis or clubbing, extremities motor strength 5/5 Skin: no rashes, warm and dry normal turgor Neurologic: PERRL, EOMI, accommodation nl, no face palsy, no dysarthria CN's II- XI intact bilaterally and moves all extremities Psychiatric: A+Ox3, euthymic affect Discharge Data Allergies Allergy/AdvReac Type Severity Reaction Status Date / Time No Known Allergies Unverified 05/03/19 07:35 Consultations 01/29/23 15:11 ED Decision to Admit Stat 01/29/23 19:26 Consult Neurology Routine Ordered Studies 01/29/23 11:10 CT head/brain wo con Stat 01/29/23 11:13 CT angio head w con Stat CT angio neck with con Stat 01/29/23 13:01 MRI Brain [MR brain wo/w con] Stat Hospital Course (1) BPPV (benign paroxysmal positional vertigo): (2) Dizziness: (3) Hypothyroidism: (4) Obesity: (5) Depression: Plan Patient is a 57-year-old female with past medical history of hypothyroidism, depression and iron deficiency anemia who presented with dizziness. She underwent CT head, CTA head and neck which was unremarkable. Brain MRI was done which did not show stroke. Patient was admitted to the hospital for closer monitoring. Neurology consultation was done. Patient's cause for dizziness was thought secondary to benign positional paroxysmal vertigo. Patient was discharged home with meclizine as needed. Patient to follow-up with her primary care doctor. Total Time Total Time Spent Total Time Spent (In Minutes): 35 Total Time Includes: Examination of the Patient, Discharge Planning, Medication Reconciliation, Communication With Other Providers and Other Discharge Plan Discharge Items Patient Disposition: Home - Self-Care Reason For Visit: dizziness Discharge Diagnosis: benign paroxysmal positional vertigo Activity: Resume your previous activity Non-emergency contact: Primary Care Provider Call non-emergency contact if: you have any medication questions and your sympto ms worsen Follow-up/Referrals: PCP,NO [Primary Care Provider] - Diet: Regular Addtl Attending Provider Instructions: You were admitted to the hospital with dizziness. MRI brain was done which did not show any stroke. The most likely cause for the vertigo is benign paroxysmal positional vertigo. You are prescribed meclizine to be taken as needed for dizziness. An appointment will be set up with your primary care doctor for sometime next week. Pending Studies at Discharge: No Stand-Alone Forms: My [facility], Smoking Cessation Medications and DC Order Prescriptions: New meclizine 12.5 mg tablet 12.5 mg PO BID PRN (Reason: dizziness) Qty: 20 0RF Continued calcium carbonate [Calcium 600] 600 mg calcium (1,500 mg) tablet 600 mg PO DAILY ferrous sulfate 325 mg (65 mg iron) tablet 325 mg PO DAILY norgestimate-ethinyl estradiol [Tri-Sprintec (28)] 0.18/0.215/0.25 mg-35 mcg (28) tablet 0 tab PO DAILY Rx Instructions: isn't sure if she still takes B/C zinc 15 mg Tablet 0 mg PO DAILY Rx Instructions: didnt give dose. ascorbic acid (vitamin C) [Vitamin C] 500 mg Tablet 500 mg PO DAILY levothyroxine 50 mcg tablet 50 mcg PO DAILY bupropion HCl 150 mg tablet extended release 24 hr 150 mg PO DAILY cholecalciferol (vitamin D3) [Vitamin D3] 25 mcg (1,000 unit) Tablet 0 mcg PO DAILY Rx Instructions: didnt give dose. Discharge Orders: Discharge Order (Routine); Ordered 01/30/23 Ordered By: Aníbal Cooley/Other Patient Handouts: Anatomy of the Inner Ear, Vertigo Disequilibrium Syncope, Vertigo Inner Ear Problems, Vertigo Medicine Tx Admission Data Admit Date/Time: 01/29/23 15:23 Attending Provider: Aníbal De La Garza Admit Provider: Debo Sue Primary Care Provider: PCP,NO Other Providers: Debo Sue Other Interventions: Discharge Summary Assessment (RN) Last Done: 01/30/23 11:21
== END 2023-01-30 12:50 | disposition home or self-care (01) ==
LOC: 2W 10:46 → ED 10:46 → SUATTDRO 15:23 → 2W 16:14